=== PATIENT | female | born 1950 | race Caucasian/White ===

== ENCOUNTER 2016-09-26 13:58 | Emergency (ER) | payer SELFPAY ==
[~2016-09-26] VITALS: Ht 170.2 cm; Wt 130.0 kg
[~2016-09-26 13:58] MED LIST: EPINEPHrine HCL (1:1000) 30 MG/30 ML VIAL IV ONE; SODIUM BICARBONATE 8.4% INJ 50 MEQ/50 ML SYR IV ONE
--- NOTE | 2016-09-26 14:46 | PD ---
HPI Chief Complaint: Code Blue Time Seen by Provider: 14:21 Travel History International Travel<30 days: No Contact w/Intl Traveler<30days: No (unknown) Traveled to known affect area: No (unknown) History of Present Illness HPI Is a 66-year-old female with unknown past medical history as she has not seen a physician in many years, who is brought in by EMS after she was a return of spontaneous circulation status post cardiac arrest. The patient apparently was found in asystole by EMS. Reported downtime was 30 minutes prior to their arrival. Patient was noted to have a blood sugar in the 50s and was given an amp of D50 and shortly thereafter she went into V. tach. They apparently defibrillated her as she was pulseless and then got a rhythm back. The patient had been given a total of 3 mg of epinephrine and 1 amp of D50 prior to the return of spontaneous circulation. The patient went into PEA when they arrived at the hospital. Fabián fourth dose of epinephrine was given. When the patient arrived CPR was in progress. The patient had fixed and dilated pupils. [facility] Social History Tobacco Use: No Allergies-Medications (Allergen,Severity, Reaction): Coded Allergies: UNOBTAINABLE (Unverified , 09/26/16) patient unresponsive, code blue. Review of Systems ROS Limitations: Other: (patient cardiac arrest and unable to obtain any history.) Physical Exam Narrative GENERAL: Well-nourished, well-developed patient being ventilated through a Combitube. SKIN: Warm and dry. HEAD: Normocephalic/atraumatic. EYES: Pupils were fixed at 4 mm bilaterally. NECK: trachea midline. Patient had a large habitus with a large neck and no JVD could be appreciated. CARDIOVASCULAR: When patient arrived she was in PEA with a rate in the 80s. RESPIRATORY: Slight decrease in breath sounds on the left compared to the right no epigastric sounds noted GASTROINTESTINAL: Abdomen soft, obese, nondistended. MUSCULOSKELETAL: Mottled with no obvious deformities NEUROLOGICAL: GCS was 3 E1, V1, M1 Data Data Orders Chest, Single Ap (09/26/16 14:24) [facility] Medical Decision Making Medical Screen Exam Complete: Yes Emergency Medical Condition: Yes Differential Diagnosis Acute cardiac arrest secondary to ST elevation versus hypoxemia versus aspiration versus electrolyte abnormality Narrative Course 66-year-old female brought in under cardiac arrest. The patient had received 4 mg of epinephrine and 1 amp of D50 prior to arrival. They initially retained Ross however shortly after arriving on the embolus rim she went back into cardiac arrest. CPR was initiated and continued when she arrived. One amp of epinephrine and 1 amp of bicarbonate was given. Return of spontaneous circulation was again noted. Patient had faint pulse and we're unable to obtain blood pressure. Shortly thereafter, patient went back into PEA bradycardia down into the 20s. The total time since initial cardiac arrest had been over an hour. The patient was fixed and dilated. The patient was mottled. All in attendance was asked if there was anything further that would be recommended and no one recommended anything other than calling the code. Patient was pronounced at 14:22 Procedures Procedure Narrative INTUBATION: The patient was put in optimal position for the procedure. With patient in cardiac arrest, no medication was required. Using a Mac 4 blade and a 7.5 ET tube, patient was successfully intubated. Tube placement was confirmed by visualization of the tube and balloon passing through the cords, capnometry and subsequent chest x-ray. Breath sounds were equal and well aerated bilaterally postintubation. No breath sounds over stomach. Diagnosis Primary Impression: acute cardiopulmonary arrest Additional Impressions: morbid obesity Morbid obesity Condition: Sathish Schmitt MD Sep 26, 2016 14:46
--- NOTE | 2016-09-26 14:47 | RADRPT ---
EXAM DATE/TIME: 09/26/2016 14:23 [facility] COMPARISON: No previous studies available for comparison. INDICATIONS : ET tube placement. MEDICAL HISTORY : Unobtainable SURGICAL HISTORY : Unobtainable ENCOUNTER: Initial ACUITY: 1 day PAIN SCORE: Non-responsive. LOCATION: Bilateral chest FINDINGS: Exam obtained while patient had cardiac arrest and receiving chest compressions. The best obtainable views. There is an endotracheal tube directed towards the right main bronchus. There is air seen distending the left main bronchus and left lower lobe atelectasis is observed. The right hemithorax is clear. Th ere is no evidence of pneumothorax. Heart size is grossly normal. Osseous structures are unremarkable. CONCLUSION: The endotracheal tube is directed within the right main bronchus and should be retrac erickson approximately 4 cm. There is still some aeration of the left hemithorax present with left basilar atelectasis. The right hemithorax is clear. Jane Rodriguez MD on September 26, 2016 at 14:43 Board Certified Radiologist. This report was verified electronically.
--- NOTE | 2016-09-27 15:05 | EKG ---
Date Performed: 09/26/2016 Time Performed: 14:12:43 PTAGE: 66 years EKG: Underlying rhythm is difficult to discern Suspect atrial fibrillation with bursts of ventri cular ectopy Widened QRS complex, cannot exclude acidosis or hyperkalemia Clinical correlation is str ongly recommended for strikingly abnormal EKG NO PREVIOUS TRACING DOCTOR: Ephraim Garcia Interpretating Date/Time 09/27/2016 15:05:11
== END 2016-09-26 16:34 | disposition expired ==
LOC: NEPC 13:58
DX: I46.9 Cardiac arrest, cause unspecified (principal); R94.31 Abnormal electrocardiogram [ECG] [EKG]; E66.01 Morbid (severe) obesity due to excess calories; E11.8 Type 2 diabetes mellitus with unspecified complications; Z98.84 Bariatric surgery status
CPT/HCPCS: 31500; 71010; 92950; 93005; 99285; J0171